=== PATIENT | female | born 1990 | race Caucasian/White ===

== ENCOUNTER 2020-05-13 12:16 | Emergency (ER) | payer OTHER ==
[~2020-05-13] VITALS: Ht 167.6 cm; Wt 82.6 kg
[~2020-05-13 12:16] MED LIST: FLAGYL500MG PO; INTESTINEX1 CAP PO; MOTRIN800 MG PO; PROTONIX40 MG PO
== END 2020-05-13 13:46 | disposition home or self-care (01) ==
LOC: ER 12:16
DX: M94.0 Chondrocostal junction syndrome [Tietze] (principal)